=== PATIENT | female | born 1975 | race Caucasian/White ===

== ENCOUNTER 2018-05-24 15:11 | Outpatient (CLI) | payer BC ==
--- NOTE | 2018-05-24 16:51 | MMO ---
SCREENING MAMMOGRAPHY: DATE: 05/24/2018. VIEWS: Bilateral CC and MLO. COMPARISONS: None available. FINDINGS: Interpretation is made with the assistance of CAD. The breast parenchyma is comprised of heterogeneo usly dense tissue which may limit sensitivity of mammography. No suspicious masses, areas of archite ctural distortion, or suspicious calcifications apparent. IMPRESSION: BI-RADS category 1 - negative. Annual screening mammography is recommended. BIRADS 1: Negative Routine annual screening mammography (for women over age 40) POS: [facility]
== END 2018-05-24 15:12 | disposition home or self-care (01) ==
LOC: SCSMAMMO 15:11
PROVIDERS: ATTEND Family Medicine
DX: Z12.31 Encounter for screening mammogram for malignant neoplasm of breast (principal)
CPT/HCPCS: 77067